=== PATIENT | female | born 1995 | race Caucasian/White ===

== ENCOUNTER 2017-09-04 07:31 | Emergency (ER) | payer BC ==
[~2017-09-04 07:31] MED LIST: ASPI-663 PO; AZIT-9 PO; AZIT500T47 PO; CEPH-1 PO; CIPR-344 PO; CODE473S6 FT; CYCL10TA29 PO; DICY-42 PO; HYDR-3250 PO; IBU600 PO; L-NO1TBD6 PO; LOR5/325 PO; NAPR500T75 PO; PROM-110 PO; ROBC PO; TRAM-627 PO
[2017-09-04] MEDS ORDERED: TRAM-627 PO (07:43)
[2017-09-04] MEDS ORDERED: ALB6.7R INH (07:43)
[2017-09-04 08:11] LABS: PLATELET COUNT, AUTOMATED 271 K/uL (150-450)
--- NOTE | 2017-09-04 08:15 | ER Report ---
History and Physical Time Seen By MD: 08:15 Hx. of Stated Complaint: RIGHT LOWER BACK PAIN THAT RADIATES TO FRONT OF ABDOMEN. PAIN WITH URINATION. STARTED LAST NIGHT. HPI/ROS Previous kidney stone. Thinks she may have another stone. Pain in right flank and right pelvis. Denies vaginal bleeding or discharge. LMP 2 weeks ago. No hematuria. No n/v. No fever/chills. Remainder of the 14 system rev: Yes Allergies: Coded Allergies: amoxicillin (Verified Allergy, Severe, ANAPHYLAXIS, 11/22/16) Penicillins (Verified Allergy, Unknown, 11/22/16) levofloxacin (Verified Allergy, Unknown, 09/04/17) hydromorphone (Verified Adverse Reaction, Intermediate, CANT WALK, 11/22/16) Home Meds Reported Medications Albuterol Sulfate (PROVENTIL HFA) 6.7 Gm Inh, 1-2 PUFF INH 3-4XD, INH 09/04/17 Tramadol Hcl (ULTRAM) 50 Mg Tablet, 50 MG PO BID, TAB 09/04/17 Discontinued Reported Medications M-Nlyeiuv-Enk Estr/Ethin Estra (SEASONIQUE 0.15-0.03-0.01 TAB) 1 Each Tbdspk.3mo , 1 EACH PO DAILY 11/22/16 Discontinued Scripts Guaifenesin/Codeine (GUAIFENESIN-CODEINE SYRUP) 5 Ml Syrp, 5 ML PO Q4-6H Y for COUGH, #120 ML Prov:VIANCA CARTER V DO 02/18/17 Dicyclomine Hcl (BENTYL) 10 Mg Capsule, 10 MG PO Q6-8H Y for PAIN, #21 CAPSULE Prov:VIANCA CARTER V DO 02/18/17 Promethazine Hcl (PROMETHAZINE HCL) 25 Mg Tablet, 25 MG PO Q4H Y for NAUSEA/ VOMITING, #14 TAB Prov:TE BALL DO 11/22/16 Reviewed Nurses Notes: Yes Old Medical Records Reviewed: Yes Hx Smoking: Yes Smoking Status: Former Smoker Exposure to Second Hand Smoke?: Yes Hx Substance Use Disorder: No Hx Alcohol Use: Yes (OCC) Constitutional Vital Sign - Last 24 Hours 09/04/17 09/04/17 09/04/17 09/04/17 07:41 08:00 08:30 09:00 Temp 98.0 Pulse 94 84 84 79 Resp 18 B/P (MAP) 129/80 119/72 (88) 107/67 (80) 115/69 (84) Pulse Ox 95 98 96 97 O2 Delivery Room Air 09/04/17 09:30 Pulse 79 B/P (MAP) 115/77 (90) Pulse Ox 95 Physical Exam GE: Alert and oriented x3 HEENT: PERRL, EOMI CV: RRR no m/r/g Lungs: cta B/L Abdomen: soft NTND Back: Mild right flank TTP, bedside US of b/l kidneys shows no hydronephrosis Medical Decision Making Data Points Result Diagram: 09/04/17 0749 09/04/17 0749 Laboratory Hematology Test 09/04/17 07:39 09/04/17 07:49 Urine Color Yellow Urine Clarity Clear Urine pH 6.0 pH (4.8-9.5) Urine Specific [place] 1.014 Urine Protein Negative mg/dL (NEGATIVE) Urine Glucose (UA) Negative mg/dL (NEGATIVE) Urine Ketones Negative mg/dL (NEGATIVE) Urine Blood Negative (NEGATIVE) Urine Nitrite Negative (NEGATIVE) Urine Bilirubin Negative (NEGATIVE) Urine Urobilinogen Negative mg/dL (0.2-1.9) Urine Leukocyte Esterase Negative (NEGATIVE) Urine RBC 1 /HPF (0-2/HPF) Urine WBC 22 /HPF (0-5/HPF) Urine Squamous Epithelial Cells Many /LPF (</=FEW) Urine Bacteria Negative /HPF (NONE-FEW) Urine Mucus None /HPF (NONE-FEW) Urine HCG, Qualitative Negative (NEGATIVE) Red Blood Count 5.28 M/uL (4.17-5.56) Mean Corpuscular Volume 85.0 fL (80.0-96.0) Mean Corpuscular Hemoglobin 29.2 pg (26.0-33.0) Mean Corpuscular Hemoglobin Concent 34.3 g/dL (32.0-36.0) Red Cell Distribution Width 15.6 % (11.5-14.5) Mean Platelet Volume 9.5 fL (7.2-11.1) Neutrophils (%) (Auto) 67.9 % (39.4-72.5) Lymphocytes (%) (Auto) 19.3 % (17.6-49.6) Monocytes (%) (Auto) 10.1 % (4.1-12.4) Eosinophils (%) (Auto) 1.4 % (0.4-6.7) Basophils (%) (Auto) 1.3 % (0.3-1.4) Nucleated RBC Relative Count (auto) 0.1 /100WBC Neutrophils # (Auto) 6.1 K/uL (2.0-7.4) Lymphocytes # (Auto) 1.7 K/uL (1.3-3.6) Monocytes # (Auto) 0.9 K/uL (0.3-1.0) Eosinophils # (Auto) 0.1 K/uL (0.0-0.5) Basophils # (Auto) 0.1 K/uL (0.0-0.1) Nucleated RBC Absolute Count (auto) 0.01 K/uL Sodium Level 140 mmol/L (137-145) Potassium Level 3.5 mmol/L (3.5-5.0) Chloride Level 101 mmol/L (98-107) Carbon Dioxide Level 22 mmol/L (22-31) Blood Urea Nitrogen 8 mg/dl (7-18) Creatinine 0.60 mg/dl (0.52-1.04) Glomerular Filtration Rate Calc > 60.0 Random Glucose 93 mg/dl (75-110) Calcium Level 10.2 mg/dl (8.4-10.2) Total Bilirubin 0.7 mg/dl (0.2-1.3) Aspartate Amino Transf (AST/SGOT) 22 U/L (0-35) Alanine Aminotransferase (ALT/SGPT) 27 U/L (0-56) Alkaline Phosphatase 95 U/L (0-126) Total Protein 8.1 gm/dl (6.3-8.2) Albumin 4.4 g/dl (3.5-5.0) Chemistry Test 09/04/17 07:39 09/04/17 07:49 Urine Color Yellow Urine Clarity Clear Urine pH 6.0 pH (4.8-9.5) Urine Specific [place] 1.014 Urine Protein Negative mg/dL (NEGATIVE) Urine Glucose (UA) Negative mg/dL (NEGATIVE) Urine Ketones Negative mg/dL (NEGATIVE) Urine Blood Negative (NEGATIVE) Urine Nitrite Negative (NEGATIVE) Urine Bilirubin Negative (NEGATIVE) Urine Urobilinogen Negative mg/dL (0.2-1.9) Urine Leukocyte Esterase Negative (NEGATIVE) Urine RBC 1 /HPF (0-2/HPF) Urine WBC 22 /HPF (0-5/HPF) Urine Squamous Epithelial Cells Many /LPF (</=FEW) Urine Bacteria Negative /HPF (NONE-FEW) Urine Mucus None /HPF (NONE-FEW) Urine HCG, Qualitative Negative (NEGATIVE) White Blood Count 9.0 k/uL (4.5-11.0) Red Blood Count 5.28 M/uL (4.17-5.56) Hemoglobin 15.4 g/dL (12.0-16.0) Hematocrit 44.9 % (34.0-47.0) Mean Corpuscular Volume 85.0 fL (80.0-96.0) Mean Corpuscular Hemoglobin 29.2 pg (26.0-33.0) Mean Corpuscular Hemoglobin Concent 34.3 g/dL (32.0-36.0) Red Cell Distribution Width 15.6 % (11.5-14.5) Platelet Count 271 K/uL (150-450) Mean Platelet Volume 9.5 fL (7.2-11.1) Neutrophils (%) (Auto) 67.9 % (39.4-72.5) Lymphocytes (%) (Auto) 19.3 % (17.6-49.6) Monocytes (%) (Auto) 10.1 % (4.1-12.4) Eosinophils (%) (Auto) 1.4 % (0.4-6.7) Basophils (%) (Auto) 1.3 % (0.3-1.4) Nucleated RBC Relative Count (auto) 0.1 /100WBC Neutrophils # (Auto) 6.1 K/uL (2.0-7.4) Lymphocytes # (Auto) 1.7 K/uL (1.3-3.6) Monocytes # (Auto) 0.9 K/uL (0.3-1.0) Eosinophils # (Auto) 0.1 K/uL (0.0-0.5) Basophils # (Auto) 0.1 K/uL (0.0-0.1) Nucleated RBC Absolute Count (auto) 0.01 K/uL Glomerular Filtration Rate Calc > 60.0 Calcium Level 10.2 mg/dl (8.4-10.2) Total Bilirubin 0.7 mg/dl (0.2-1.3) Aspartate Amino Transf (AST/SGOT) 22 U/L (0-35) Alanine Aminotransferase (ALT/SGPT) 27 U/L (0-56) Alkaline Phosphatase 95 U/L (0-126) Total Protein 8.1 gm/dl (6.3-8.2) Albumin 4.4 g/dl (3.5-5.0) Urinalysis Test 09/04/17 07:39 Urine Color Yellow Urine Clarity Clear Urine pH 6.0 pH (4.8-9.5) Urine Specific [place] 1.014 Urine Protein Negative mg/dL (NEGATIVE) Urine Glucose (UA) Negative mg/dL (NEGATIVE) Urine Ketones Negative mg/dL (NEGATIVE) Urine Blood Negative (NEGATIVE) Urine Nitrite Negative (NEGATIVE) Urine Bilirubin Negative (NEGATIVE) Urine Urobilinogen Negative mg/dL (0.2-1.9) Urine Leukocyte Esterase Negative (NEGATIVE) Urine RBC 1 /HPF (0-2/HPF) Urine WBC 22 /HPF (0-5/HPF) Urine Squamous Epithelial Cells Many /LPF (</=FEW) Urine Bacteria Negative /HPF (NONE-FEW) Urine Mucus None /HPF (NONE-FEW) Urine HCG, Qualitative Negative (NEGATIVE) ED Course/Re-evaluation ED Course No hematuria and no hydro. Reports pain in right adnexa. HCG negative, Pelvic US WNL. Not worrisome for torsion. Could be mid cycle ovulation pain. Improved with NSAIDs. Decision to Disposition Date: Sep 04, 2017 Decision to Disposition Time: 10:02 Depart Departure Latest Vital Signs Vital Signs Date Time Temp Pulse Resp B/P (MAP) Pulse Ox O2 Delivery O2 Flow Rate FiO2 09/04/17 09:30 79 115/77 (90) 95 09/04/17 07:41 98.0 18 Room Air Impression: Primary Impression: Pelvic pain Condition: Improved Disposition: HOME OR SELF-CARE Patient Instructions: David (ED) DAYSI SNOW MD Sep 04, 2017 08:15
[2017-09-04] MEDS ORDERED: ONDANSETRON 4 MG/2 ML VIAL IVP ONE (08:55)
[2017-09-04] MEDS ORDERED: KETOROLAC 30 MG/ML VIAL IVP ONE (08:55)
[2017-09-04 09:30] VITALS: BP 115/77
--- NOTE | 2017-09-04 10:06 | RADIOLOGY IMAGING REPORT ---
FACILITY: [facility] PATIENT NAME: Robert Billings : 1995 MR: [id number] V: [id number] EXAM DATE: [id number] ORDERING PHYSICIAN: DAYSI SNOW TECHNOLOGIST: Location: [facility] Patient: Robert Billings : 1995 Visit/Account:[id number] Date of Sevice: 09/04/2017 EXAMINATION: Transvaginal pelvic ultrasound with duplex Doppler evaluation Additional Pertinent history: Pain and tender to palpation right adnexa, evaluate for torsion; LMP COMPARISON STUDIES: February 18, 2017 FINDINGS: Uterus: negative; six cm length x 2.9 cm transverse x 3.4 cm AP Myometrium: negative Endometrium: Unremarkable measuring 8.9 mm in thickness Cervix: negative Ovaries: negative; right ovary 2.3 x 1 x 1.6 cm, left ovary not visualized cm Blood flow is documented in the right ovary by Doppler ultrasound. Adnexa: negative Free pelvic fluid: none IMPRESSION: The left ovary was not identified. Otherwise unremarkable pelvic ultrasound. Specifically no demons tration of right ovarian torsion: Report Dictated By: Ariadna Taveras MD at 09/04/2017 9:58 AM Report E-Signed By: Ariadna Taveras MD at 09/04/2017 10:02 AM WSN:[email or web address]
== END 2017-09-04 10:14 | disposition home or self-care (01) ==
LOC: ER 07:41
DX: R10.2 Pelvic and perineal pain (principal)
CPT/HCPCS: 76830; 81001; 81025; 85025; 99284; J1885; J2405; 82040; 82247; 82310; 82374; 82435; 82565; 82947; 84075; 84132; 84155; 84295; 84450; 84460; 84520